=== PATIENT | male | born 1965 | race Caucasian/White ===

== ENCOUNTER 2016-12-08 16:55 | Emergency (ER) | payer OTHER ==
[2016-12-08] MEDS ORDERED: DUONEB 0.5-3 MG/3 ml Neb IH ONE ×2 (17:53→17:59)
--- NOTE | 2016-12-08 17:53 | ERPHSYRPT ---
- History of Present Illness Time Seen by Provider: 12/08/16 17:40 Source: patient Exam Limitations: no limitations Patient Subjective Stated Complaint: SORE THROAT/SOB Triage Nursing Assessment: SORE THROAT SINCE LAST TUESDAY. SOB SINCE TUESDAY. COUGH NOTED. CRACKLES IN POST BASES. NO FEVER. THROAT RED Physician History: The patient is a 51-year-old male with his complaining of a cough and a sore throat for 5 days. His past medical history significant for COPD for which he no longer has any medications. Timing/Duration: gradual onset Severity: moderate ENT Location: throat Prearrival Treatment: no prearrival treatment Modifying Factors: Improves With: coughing Associated Symptoms: cough, sore throat Allergies/Adverse Reactions: No Known Drug Allergies Allergy (Unverified 12/08/16 17:08) Home Medications: Omeprazole 20 MG [Prilosec 20 mg] 20 mg PO DAILY 12/08/16 [History] Hx Tetanus, Diphtheria Vaccination/Date Given: Yes Hx Influenza Vaccination/Date Given: No Hx Pneumococcal Vaccination/Date Given: No Immunizations Up to Date: Yes - Review of Systems Constitutional: No Fever, No Chills Eyes: No Symptoms Ears, Nose, & Throat: Throat Pain Respiratory: Cough Cardiac: No Chest Pain, No Edema, No Syncope Abdominal/Gastrointestinal: No Abdominal Pain, No Nausea, No Vomiting, No Diarrhea Genitourinary Symptoms: No Dysuria Musculoskeletal: No Back Pain, No Neck Pain Skin: No Rash Neurological: No Dizziness, No Focal Weakness, No Sensory Changes Psychological: No Symptoms Endocrine: No Symptoms Hematologic/Lymphatic: No Symptoms, Easy Bruising Immunological/Allergic: No Symptoms All Other Systems: Reviewed and Negative - Past Medical History Pertinent Past Medical History: No - Past Surgical History Past Surgical History: Yes Musculoskeletal: Orthopedic Surgery Other Surgical History: RT KNEECAP. LT FOOT. FX ELBOW, WRIST, JAW - Social History Smoking Status: Current every day smoker Exposure to second hand smoke: Yes Drug Use: none Patient Lives Alone: No - Nursing Vital Signs Nursing Vital Signs: Initial Vital Signs Temperature 98.5 F Temperature Source Oral Pulse Rate 69 Respiratory Rate 18 Blood Pressure [Right Arm] 134/99 Pain Intensity 0 - Physical Exam General Appearance: mild distress Eye Exam: bilateral eye: normal inspection Ear Exam: bilateral ear: auricle normal Nasal Exam: normal inspection Throat Exam: pharynx swelling Neck Exam: supple Cardiovascular/Respiratory Exam: decreased breath sounds Abdominal Exam: non-tender, soft Neurologic Exam: alert, oriented x 3, sensation nml, No motor deficits Skin Exam: normal color, warm, dry SpO2 Interpretation: normal SpO2: 98 Oxygen Delivery: Room Air - Radiology Exams Chest X-ray Interpretation: Interpreted by me, Negative Ordered Tests: Active Orders 24 hr Category Date Time Status CHEST 2 VIEWS (PA AND LAT) Stat Exams 12/08/16 17:54 Taken BMP Stat Lab 12/08/16 18:10 Completed CBC W DIFF Stat Lab 12/08/16 18:10 Completed CULTURE, THROAT Stat Lab 12/08/16 18:10 Received STREP SCREEN-BETA A Stat Lab 12/08/16 18:10 Completed Respiratory Nebulizer STAT RT 12/08/16 17:55 Completed Medication Summary Discontinued Medications Generic Name Dose Route Start Last Admin Trade Name Freq PRN Reason Stop Dose Admin Albuterol/Ipratropium 3 ml 12/08/16 17:53 12/08/16 18:03 Duoneb 0.5-3 Mg/3 Ml Neb IH 12/08/16 17:54 3 ml STAT ONE Administration Albuterol/Ipratropium Confirm 12/08/16 17:59 Duoneb 0.5-3 Mg/3 Ml Neb Administered 12/08/16 18:00 Dose 3 ml IH .STK-MED ONE Lab/Rad Data: Laboratory Result Diagrams 12/08/16 18:10 12/08/16 18:10 Laboratory Results 12/08/16 12/08/16 12/08/16 Range/Units 18:10 18:10 18:10 WBC 9.0 (4.0-10.5) K/mm3 RBC 5.32 (4.1-5.6) M/mm3 Hgb 15.4 (12.5-18.0) gm/dl Hct 45.7 (42-50) % MCV 85.9 (78-100) fl MCH 28.9 (26-32) pg MCHC 33.7 (32-36) g/dl RDW 13.7 (11.5-14.0) % Plt Count 217 (150-450) K/mm3 MPV 10.1 H (6-9.5) fl Gran % 48.8 (36.0-66.0) % Lymphocytes % 36.3 (24.0-44.0) % Monocytes % 11.3 (0.0-12.0) % Eosinophils % 3.0 (0.00-5.0) % Basophils % 0.6 (0.0-0.4) % Basophils # 0.05 (0-0.4) Sodium 144 (136-145) mEq/L Potassium 4.7 (3.5-5.1) mEq/L Chloride 104 (98-107) mEq/L Carbon Dioxide 31.5 (21-32) mEq/L Anion Gap 13.6 (5-15) MEQ/L BUN 11 (9-20) mg/dL Creatinine 1.10 (0.55-1.30) mg/dl Estimated GFR > 60 ML/MIN Glucose 82 (70-110) MG/DL Calcium 8.8 (8.5-10.1) mg/dL Streptococcus Screen NEGATIVE (Negative) - Progress Progress: improved Counseled pt/family regarding: lab results, diagnosis, need for follow-up, rad results - Departure Time of Disposition: 18:55 Departure Disposition: Home Clinical Impression: Bronchitis Condition: Stable Critical Care Time: No Prescriptions: Albuterol Sulfate [Albuterol Sulfate Hfa] 2 puff IH Q4-6HPRN PRN #1 [email or web address] PRN Reason: cough or wheeze Amoxicillin/Potassium Clav [Augmentin 875-125 Tablet] 875 mg PO BID #20 tablet
[2016-12-08 18:21] LABS: BASOPHIL % 0.6 % (0.0-0.4); Granulocytes % 48.8 % (36.0-66.0); Lymphocytes % 36.3 % (24.0-44.0); Mean Cell Volume 85.9 fl (78-100); Mean Corpuscular Hemoglobin 28.9 pg (26-32); Mean Platelet Volume 10.1 fl (6-9.5); Monocytes % 11.3 % (0.0-12.0); Platelet Count 217 K/mm3 (150-450); Red Blood Count 5.32 M/mm3 (4.1-5.6); Red Cell Distribution Width 13.7 % (11.5-14.0)
[2016-12-08 18:32] LABS: ANION GAP 13.6 MEQ/L (5-15); BLOOD UREA NITROGEN 11 mg/dL (9-20); CHLORIDE 104 mEq/L (98-107); Carbon Dioxide 31.5 mEq/L (21-32); Glucose 82 MG/DL (70-110); Potassium 4.7 mEq/L (3.5-5.1); SODIUM 144 mEq/L (136-145)
[2016-12-08 18:57] VITALS: O2SAT 98
[2016-12-08 19:03] VITALS: BP 113/72; PULSE 66
--- NOTE | 2016-12-09 08:30 | XRAY ---
Indication: Cough, congestion, short of breath, and sore throat. Comparison: None PA/lateral chest demonstrates normal heart, lungs, and bony thorax.
== END 2016-12-08 19:00 | disposition home or self-care (01) ==
LOC: ED 16:55
DX: J40 Bronchitis, not specified as acute or chronic (principal); R05 Cough; J02.9 Acute pharyngitis, unspecified; J44.9 Chronic obstructive pulmonary disease, unspecified
CPT/HCPCS: 36415; 71020; 80048; 85025; 87070; 87430; 94640; 99283